=== PATIENT | male | born 1995 | race Caucasian/White ===

== ENCOUNTER 2021-08-17 16:40 | Outpatient (CLI) | payer SELFPAY ==
--- NOTE | ~2021-08-17 | XR_ITS ---
XR chest 2V DATE: 08/17/2021 17:07 INDICATION: Intermittent Central chest pain, syncopal episodes for 2 weeks TECHNIQUE: 2 views COMPARISON: None FINDINGS: Normal heart size. No hilar or mediastinal enlargement. No pulmonary infiltrate or consolid ation, pleural effusion or pulmonary vascular congestion or pneumothorax. IMPRESSION: Negative Reviewed, dictated and finalized at location A. IMPRESSION: Negative
--- NOTE | 2021-08-17 17:04 | ECG_ITS ---
Measurements Intervals [place] Rate: 60 P: 39 ID: [id number] QRS: 89 QRSD: 88 T: 55 QT: 345 QTc: 347 Interpretive Statements SINUS RHYTHM WITH SINUS ARRHYTHMIA EARLY REPOLARIZATION [ST ELEVATION WITH NORMALLY INFLECTED T-WAVE] NORMAL ECG NO PREVIOUS ECG AVAILABLE FOR COMPARISON Electronically Signed On 08-17-2021 17:46:23 CDT by Boris Roman M.D.
== END 2021-08-17 16:41 | disposition home or self-care (01) ==
LOC: CHSLAB 16:45
PROVIDERS: PCP Physician Assistant; Visit Provider Physician Assistant
DX: R07.89 Other chest pain (principal)
CPT/HCPCS: 71046; 93005